=== PATIENT | male | born 1945 | race Caucasian/White ===

== ENCOUNTER 2018-08-06 16:36 | Emergency (ER) | payer MEDICARE, BC ==
[2018-08-06 17:02] VITALS: PULSE 0; RESP 12
[2018-08-06] MEDS ORDERED: EPINEPHRINE HCL 0.1 MG/ML SOL IV PRN ×2 (17:02→17:11)
[2018-08-06] MEDS ORDERED: SODIUM CHLORIDE 0.9% FLUSH 10 ML SOL IV PRN (17:12)
[2018-08-06] MEDS ORDERED: HYDROMORPHONE 1 MG/ML SYRINGE IV ONE (18:30)
[2018-08-06 18:33] VITALS: O2SAT 67
[2018-08-06 18:39] VITALS: TEMP 94.8
[2018-08-06] MEDS ORDERED: EPINEPHRINE 1:10,000 PREFILL 0.1 MG/ML SOL ONE (19:54)
== END 2018-08-06 19:47 | disposition expired | DRG 298 ==
LOC: ED 16:36
DX: I46.9 Cardiac arrest, cause unspecified (principal); R40.2432 Glasgow coma scale score 3-8, at arrival to emergency department
CPT/HCPCS: 71045; 96374; 99285; 99291